=== PATIENT | male | born 1985 | race Two or more races ===

== ENCOUNTER 2019-02-07 00:19 | Emergency (ER) | payer OTHER ==
[~2019-02-07] VITALS: Ht 172.7 cm; Wt 75.7 kg
[2019-02-07] MEDS ORDERED: PROCHLORPERAZINE 10 MG/2 ML VIAL. IV ONE (01:15)
[2019-02-07] MEDS ORDERED: KETOROLAC 15 MG/ML VIAL. IV ONE (01:15)
[2019-02-07] MEDS ORDERED: diphenhydrAMINE 50 MG/ML VIAL IVP ONE (01:15)
--- NOTE | 2019-02-07 01:26 | RAD ---
RS Compliance Statement: One or more of the following individualized dose reduction techniques were utilized for this examination: 1. Automated exposure control 2. Adjustment of the mA and/or kV according to patient size 3. Use of iterative reconstruction technique CT HEAD WITHOUT CONTRAST History: Headache x1 year. Comparison: None. Procedure: Axial images are obtained of the head from the skull base through the vertex without IV contrast. Findings: The ventricles and sulci are normal for the patient's age. No mass-effect, midline shift, hemorrhage, extra-axial fluid collection, or obvious acute infarction is identified. Basilar cisterns are patent. Bone windows demonstrate no acute calvarial abnormality. Mild mucosal thickening bilateral ethmoid and right sphenoid sinuses. There is no air-fluid level. Mastoid air cells are well aerated. IMPRESSION: No acute intracranial abnormality. Electronically signed by: Jayden Yen MD (02/07/2019 1:23 AM) [facility]
--- NOTE | 2019-02-07 01:51 | PHYS DOC ---
Past Medical History Past Medical History: Migraines Past Surgical History: No Surgical History Alcohol Use: None Drug Use: None Adult General Chief Complaint Chief Complaint: HEADACHE HPI HPI Patient is a 33 year old M WHO P/W HEADACHE HAS HAD THIS MOST OF HTE TIME FOR TWO YEARS WENT TO AN ER ONCE THEY TOLD HIM IT WAS A MIGRAINE BUT HE STILL HAS IT HE IS NOT SURE. TODAY THE H/A DIDNT GO AWAY WITH MOTRIN SO THEY CAME TO ER ARMS AND LEGS FEEL OK HX OBTAINED WITH TIEN [employer] RIGHT POSTERIOR H/A SHARP RADIATES DOWN TO NECK, HURTS TO TOUCH IT AND MOVE THE NECK. NO FEVER [id number] ALSO [employer] LATER Review of Systems Review of Systems Constitutional: Denies fever or chills [] Eyes: Denies change in visual acuity, redness, or eye pain [] HENT: Denies nasal congestion or sore throat [] Respiratory: Denies cough or shortness of breath [] Cardiovascular: No additional information not addressed in HPI [] GI: Denies abdominal pain, nausea, vomiting, bloody stools or diarrhea [] : Denies dysuria or hematuria [] Musculoskeletal: Denies back pain or joint pain [] Integument: Denies rash or skin lesions [] Neurologic: Denies headache, focal weakness or sensory changes [] Endocrine: Denies polyuria or polydipsia [] All other systems were reviewed and found to be within normal limits, except as documented in this note. Current Medications Current Medications Current Medications Medications (Trade) Dose Ordered Sig/Angelica Start Time Stop Time Status Last Admin Dose Admin Diphenhydramine HCl (Benadryl) 25 mg 1X ONCE 02/07/19 01:15 02/07/19 01:16 DC 02/07/19 01:15 25 MG Ketorolac Tromethamine (Toradol 15mg Vial) 15 mg 1X ONCE 02/07/19 01:15 02/07/19 01:16 DC 02/07/19 01:15 15 MG Prochlorperazine Edisylate (Compazine) 10 mg 1X ONCE 02/07/19 01:15 02/07/19 01:16 DC 02/07/19 01:15 10 MG Allergies Allergies Allergies Coded Allergies Type Severity Reaction Last Updated Verified No Known Drug Allergies 02/07/19 No Physical Exam Physical Exam Constitutional: Well developed, well nourished, no acute distress, non-toxic appearance. [] HENT: Normocephalic, atraumatic, bilateral external ears normal, oropharynx moist, no oral exudates, nose normal. [] Eyes: PERRLA, EOMI, conjunctiva normal, no discharge. [] Neck: MILD PARASPINOUS TTP NOTED NO BONY TTP NOTED THERE IS ALSO TTP NOTED BASE OF SKULL RIGHT OCCIPITAL AREA NO INFECTIN OR TRAUMA SEEN Cardiovascular:Heart rate regular rhythm, no murmur [] Lungs & Thorax: Bilateral breath sounds clear to auscultation [] Abdomen: Bowel sounds normal, soft, no tenderness, no masses, no pulsatile masses. [] Skin: Warm, dry, no erythema, no rash. [] Back: No tenderness, no CVA tenderness. [] Extremities: No tenderness, no cyanosis, no clubbing, ROM intact, no edema. [] Neurologic: Alert and oriented X 3, normal motor function, normal sensory function, no focal deficits noted. [] Psychologic: Affect normal, judgement normal, mood normal. [] Current Patient Data Vital Signs Vital Signs Date Time Temp Pulse Resp B/P (MAP) Pulse Ox O2 Delivery O2 Flow Rate FiO2 02/07/19 00:55 97.8 71 17 130/81 (97) 99 Room Air 97.8 EKG EKG [] Radiology/Procedures Radiology/Procedures [] Impressions: Procedure: Axial images are obtained of the head from the skull base through the vertex without IV contrast. Findings: The ventricles and sulci are normal for the patient's age. No mass-effect, midline shift, hemorrhage, extra-axial fluid collection, or obvious acute infarction is identified. Basilar cisterns are patent. Bone windows demonstrate no acute calvarial abnormality. Mild mucosal thickening bilateral ethmoid and right sphenoid sinuses. There is no air-fluid level. Mastoid air cells are well aerated. IMPRESSION: No acute intracranial abnormality. Course & Med Decision Making Course & Med Decision Making Pertinent Labs and Imaging studies reviewed. (See chart for details) []LONGSTANDING H/A DID IMAGING HE SAID HE HAS NOT HAD IMAGING. PT FELT MOSTLY BETTER AFTER ER TREATMENT., COUNSELED ON CONSERATIVE MEASURES, ICE REST, FLEXERIL (ALREADY HAS RX), MOTRIN NEEDED. Dragon Disclaimer Dragon Disclaimer This electronic medical record was generated, in whole or in part, using a voice recognition dictation system. Departure Departure Impression: Primary Impression: Headache Disposition: 01 HOME, SELF-CARE Condition: STABLE Referrals: NO PCP (PCP) ALEXA PANTOJA MD Feb 07, 2019 01:51
[2019-02-07 02:15] VITALS: BP 100/65
== END 2019-02-07 02:33 | disposition home or self-care (01) ==
LOC: ER 00:19
DX: G43.909 Migraine, unspecified, not intractable, without status migrainosus (principal)
CPT/HCPCS: 70450; 96374; 96375; 99284; J0780; J1200; J1885